=== PATIENT | female | born 1945 | race Caucasian/White ===

== ENCOUNTER → 2018-06-22 15:25 | Outpatient (CLI) | payer MEDICARE, SELFPAY ==
--- NOTE | 2018-06-22 15:29 | BI_ITS ---
MAMMOGRAPHY - BILATERAL SCREENING REASON FOR EXAM: Female, 72 years old. Routine annual screening examination. PERTINENT HISTORY: Non-contributory. TECHNIQUE: Digital bilateral breast dia (3D mammographic acquisition) in the CC and MLO projections. 2-D mediolateral oblique (MLO) and craniocaudad (CC) views of both breasts were obtained. CAD: Full Field Digital Mammography with Computer Added Detection was performed. COMPARISON: Comparison is made with prior outside examination dated June 04, 2017. FINDINGS: Breast Composition: There are scattered areas of fibroglandular density. There are no dominant masses or suspicious calcifications. No other significant abnormalities are identified. There has been no significant change since the prior study. BI/SCREENING MAMM (CAD), BILAT IMPRESSION: Stable bilateral screening mammogram. Yearly follow-up mammogram recommended. (A) ASSESSMENT CATEGORY: BIRADS Category 1: Negative. A letter regarding these results will be sent to the patient by the facility within 30 days. Approximately 10% of breast cancers are not detected by mammography. A normal mammogram should not delay biopsy of a clinically suspicious abnormality. [id number] Electronically Signed: Stanley Hudson, at 9:09 EST , Service support ,
== END ==
PROVIDERS: PCP Internal Medicine; Referring Provider Internal Medicine; Visit Provider Internal Medicine
DX: Z12.31 Encounter for screening mammogram for malignant neoplasm of breast (principal)
CPT/HCPCS: 77063; 77067

== ENCOUNTER → 2019-06-23 10:28 | Outpatient (CLI) | payer MEDICARE, SELFPAY ==
--- NOTE | 2019-06-23 10:32 | BI_ITS ---
MAMMOGRAPHY - BILATERAL SCREENING REASON FOR EXAM: Female, 73 years old. Routine annual screening examination. PERTINENT HISTORY: Non-contributory. TECHNIQUE: Digital bilateral breast lawrence (3D mammographic acquisition) in the CC and MLO projections. 2-D mediolateral oblique (MLO) and craniocaudad (CC) views of both breasts were obtained. CAD: Full Field Digital Mammography with Computer Added Detection was performed. COMPARISON: None. FINDINGS: Breast Composition: Fatty degeneration of the breasts bilaterally. There are no dominant masses or suspicious calcifications. No other significant abnormalities are identified. BI/SCREEN MAMM (CAD) W/LAWRENCE BILAT IMPRESSION: Stable bilateral screening mammogram. Yearly follow-up mammogram recommended. (A) ASSESSMENT CATEGORY: BIRADS Category 1: Negative. A letter regarding these results will be sent to the patient by the facility within 30 days. Approximately 10% of breast cancers are not detected by mammography. A normal mammogram should not delay biopsy of a clinically suspicious abnormality. [id number] Electronically Signed: Emil Garrison, at 14:55 EST Tel , Service support ,
--- NOTE | 2019-06-23 10:33 | BD_ITS ---
STUDY: DUAL ENERGY X-RAY ABSORPTIOMETRY / DXA REASON FOR EXAM: Female, 73 years old. Age of oli- 50. Pat is 125# and 64 and quot; a loss of 2 and quot; per pat. Takes 2400mg of calcium and a multi-vit. Exercises moderately. TECHNIQUE: Bone Mineral Density (BMD) measurements of lumbar spine and bilateral hips were obtained. COMPARISON: None. FINDINGS: Lumbar Spine (L1-L4): g/cm2 (0.850) / T-score (-2.8) / Z-score (-1.0) Findings are suggestive of osteoporosis with a high fracture risk. Left Femur Total: g/cm2 (0.681) / T-score (-2.6) / Z-score (-0.9) Left Femoral Neck: g/cm2 (0.710) / T-score (-2.4) / Z-score (-0.5) Right Femur Total: g/cm2 (0.699) / T-score (-2.5) / Z-score (-0.8) Right Femoral Neck: g/cm2 (0.5) / T-score (-2.1) / Z-score (-0.2) BD/Dexa Bone Density Study IMPRESSION: The patient is considered osteoporotic as outlined below according to World [employer]ac[employer] Organization (WHO) criteria with a high fracture risk. Reference Information: The T-score is the number of standard deviations above or below the standard which is normal for young adults at their peak bone mineral density. The World Health Organization (WHO) interprets the T-scores as follows: Above -1 Normal bone density Between -1 and -2.5 Osteopenia Equal to / or below -2.5 Osteoporosis As a practical clinical guideline, osteopenia may be graded as follows: Mild -1 through -1.5 Moderate -1.6 through -2.0 Severe -2.1 through -2.4 The Z-score is the number of standard deviations above or below age-matched controls. A Z-score of less than -1.5 would be considered abnormal. References: 1. NIH Osteoporosis and Related Bone Diseases http://www.osteo.org 2. International Society for Clinical Densitometry http://www.iscd.org 3. National Osteoporosis Foundation http://www.nof.org Electronically Signed: Stanley Hudson, at 15:25 EST , Service support ,
== END ==
PROVIDERS: PCP Internal Medicine; Referring Provider Internal Medicine; Visit Provider Internal Medicine
DX: Z12.31 Encounter for screening mammogram for malignant neoplasm of breast (principal); Z78.0 Asymptomatic menopausal state
CPT/HCPCS: 77063; 77067; 77080

== ENCOUNTER → 2019-07-07 | Outpatient (CLI) | payer MEDICARE, SELFPAY ==
[2019-07-07 18:12] LABS: Hematocrit 43.1 % (37-47); Hemoglobin 14.1 g/dL (12.0-15.0); Mean Corp Hgb Conc 32.7 g/dL (32-36); Mean Corpuscular Hgb 31.1 pg (27.0-32.0); Mean Corpuscular Volume 94.9 fL (81-99); Mean Platelet Vol. 10.4 fl (6.2-12.0); Platelet Count 276 K/mm3 (150-450); RBC Distribution Width CV 13.3 % (11.6-14.6); RBC Distribution Width SD 46.7 fl (35.1-43.9); Red Blood Count 4.54 M/mm3 (4.2-5.4); White Blood Count 6.1 K/mm3 (4.4-11.0)
[2019-07-07 18:21] LABS: Erythrocyte Sedimentation Rate 7 mm/hr (0-30)
[2019-07-07 18:58] LABS: AST(SGOT) 29 U/L (15-37); Alanine Aminotransfer ALT/SGPT 31 U/L (13-56); Albumin, Serum 3.7 g/dL (3.2-5.0); Alkaline Phosphatase 87 U/L (45-117); CRP < 2.90 mg/L (0.0-3.0); Creatinine, Serum 0.94 mg/dL (0.55-1.02); EST Glomerular Filtration Rate 62 mL/min (>60); Est Glom Filt Rate - Afr Amer 75 mL/min (>60); Globulin 3.6 g/dL (2.2-4.2); Phosphorus 2.8 mg/dL (2.5-4.9); Protein, Total 7.3 g/dL (6.4-8.2); Thyroid Stim Hormone (TSH) 3.01 uIU/mL (0.358-3.74)
[2019-07-08 08:15] LABS: PTHIN 59.8 pg/mL (18.4-80.1)
[2019-07-09 16:50] LABS: Vitamin D 1,25-Dihydroxy 42.6 pg/mL (19.9-79.3)
[2019-07-10 08:05] LABS: Vitamin D,25 Hydroxy 71.9 ng/mL
[2019-07-12 14:07] LABS: PROEL- A/G Ratio 1.3 (0.7-1.7); PROEL- Albumin 3.6 g/dL (2.9-4.4); PROEL- Alpha-1 Globulin 0.2 g/dL (0.0-0.4); PROEL- Alpha-2 Globulin 0.7 g/dL (0.4-1.0); PROEL- Gamma Globulin 0.9 g/dL (0.4-1.8); PROEL- Globulin, Total 2.7 g/dL (2.2-3.9); PROEL- TOTAL PROTEIN 6.3 g/dL (6.0-8.5); PROELU- Albumin, Urine 41.9 % (.); PROELU- Alpha-1-Globulin,Ur 3.9 % (.); PROELU- Alpha-2-Globulin,Ur 11.8 % (.); PROELU- Beta Globulin, Ur 23.8 % (.); PROELU- Gamma Globulin, Ur 18.5 % (.); Total Protein, Ur 8.5 mg/dL (Not Estab.)
== END | disposition home or self-care (01) ==
PROVIDERS: PCP Internal Medicine; Referring Provider Internal Medicine; Visit Provider Internal Medicine
DX: M81.0 Age-related osteoporosis without current pathological fracture (principal)
CPT/HCPCS: 36415; 80076; 82306; 82310; 82565; 82652; 83970; 84100; 84165; 84166; 84443; 85027; 85652; 86140

== ENCOUNTER → 2019-07-09 | Outpatient (CLI) | payer MEDICARE, SELFPAY ==
[2019-07-09 12:35] LABS: 24HR UR TOTAL VOLUME 1000 ml; Calcium Urine pH Range 2
== END | disposition home or self-care (01) ==
LOC: LABSPEC 08:41
PROVIDERS: PCP Internal Medicine; Referring Provider Internal Medicine; Visit Provider Internal Medicine
DX: M81.0 Age-related osteoporosis without current pathological fracture (principal)
CPT/HCPCS: 82340

== ENCOUNTER → 2020-06-26 10:59 | Outpatient (CLI) | payer MEDICARE, SELFPAY ==
--- NOTE | 2020-06-26 11:00 | BI_ITS ---
MAMMOGRAPHY - BILATERAL SCREENING REASON FOR EXAM: Female, 74 years old. Routine annual screening examination. PERTINENT HISTORY: Non-contributory. TECHNIQUE: Digital bilateral breast lawrence (3D mammographic acquisition) in the CC and MLO projections. 2-D mediolateral oblique (MLO) and craniocaudad (CC) views of both breasts were obtained. CAD: Full Field Digital Mammography with Computer Added Detection was performed. COMPARISON: Comparison is made with prior study dated 06/23/2019 and 06/22/2018. FINDINGS: Breast Composition: There are scattered areas of fibroglandular density. There are no dominant masses or suspicious calcifications. Stable bilateral benign-appearing secretory calcifications. No other significant abnormalities are identified. There has been no significant change since the prior study. BI/SCRN MAMM (CAD)W/LAWRENCE BILAT IMPRESSION: Stable bilateral screening mammogram. Yearly follow-up mammogram recommended. (A) ASSESSMENT CATEGORY: BIRADS Category 2: Benign. A letter regarding these results will be sent to the patient by the facility within 30 days. Approximately 10% of breast cancers are not detected by mammography. A normal mammogram should not delay biopsy of a clinically suspicious abnormality. [id number] Electronically Signed: Stanley Hudson MD at 11:40 EST , Service support ,
== END ==
PROVIDERS: PCP Internal Medicine; Referring Provider Internal Medicine; Visit Provider Internal Medicine
DX: Z12.31 Encounter for screening mammogram for malignant neoplasm of breast (principal)
CPT/HCPCS: 77063; 77067

== ENCOUNTER 2020-09-27 11:30 | Outpatient (RCR) | payer MEDICARE, SELFPAY ==
--- NOTE | 2020-09-07 12:03 | HP.PTEVAL ---
Patient's Visit Information KRISTIN GAN is a 75 year old F referred to Physical Therapy by Dr. Latesha Holbrook DO with a diagnosis of BACK PAIN. Date of Evaluation: 09/07/20 Physical Therapist: Chelsey Saenz PT, Cert MDT - Visit Plan Frequency: 2-3x /Week Duration: 4-6 Weeks Plan: LOW BACK ULTRASOUND. POSTURE CORRECTION/STRENGTHENING, INSTRUCTION IN APPROPRIATE BODY MECHANICS AND ACTIVITY MODIFICATIONS. DLS STARTING WITH A NEUTRAL SPINE PROGRESSING ROM TOLERATED. SUZAN LE ROM, STRETCHING AND STRENGTHENING. HEP INSTRUCTION. REVIEW PATIENTS CURRENT HP H&W EX PROGRAM AND MAKE MODIFICATIONS APPROPRIATE. - Subjective Work/Leisure: RETIRED. Present symptoms: SUZAN LOW BACK PAIN. Present since: IT HAS BEEN COMING ON FOR ABOUT A YEAR BUT SEEMED TO OVER DO IT ABOUT AUG 26 2020 STANDING AT A TRACK MEET THEN MOWED THE YARD AND IT IS BUMPY. STATES SHE MOWED ABOUT 1 HOUR FRIDAY AND 1 HOUR FRIDAY BUT IT STILL SEEMED LIKE TOO MUCH. Pain Scale: WORST 3/10, LEAST 0/10. Currently: 0/10. Commenced as a result of: SEE ABOVE. Symptoms at onset: LOW BACK PAIN. Worse: STANDING, MOWING, BENDING OVER, TRYING TO WALK TOO FAST (HAS TO GO SLOWER ON THE TREADMILL NOW THAN BEFORE ABOUT 2 WKS AGO WHEN THIS STARTED). Better: SITTING DOWN, REST, TAKING A BREAK. Disturbed sleep: NO. Previous history/Previous treatment: ABOUT 30 YEARS AGO HAD A DISC PROBLEM THAT RESOLVED WITH TRACTION. NO BACK SURGERY. NO SONIYA'S. NO CHIROPRACTIC. NO PHYSICAL THERAPY. Treatment this episode: PREDNISONE - HELPED. ALSO RECEIVED A SHOT FOR PAIN IN DR. HOLBROOK'S OFFICE. Coughing/sneezing/straining: NEGATIVE. Gait: USE TO GO 4.2 OR 4.3 MPH BUT NOW IT HURTS TO GO THAT FAST BUT HAS WORKED BACK UP TO ABOUT 3.8 MPH AT LEAST PART OF THE TIME. Difficulty initiating urination: NO. Accidents: NO. Unexplained weight loss: NO. Imaging: NONE RECENT. PMH: SCALP SCAB FROM CHEMO CREAM FOR SKIN CANCER. Recent major surgery: NO - Objective Sitting/Standing Posture: FAIR. RIGHT ILIAC CREST HIGHER THAN LEFT. LEFT SHLD LEVEL HIGHER THAN RIGHT. POSSIBLE SCOLIOSIS BUT NO RIB HUMP WITH FORWARD FLEXION. Lordosis: REDUCED. Lateral shift: LEFT. Relevant shift: N/A - PATIENT CAN CROSS MID-LINE TO THE RIGHT. Active Correction of posture: WORSE. Other Observations: INDEP TRANSFER SIT TO STAND WITHOUT UE ASSIST. INDEP GAIT WITHOUT LOB OR ASSISTIVE DEVICE ON LEVEL SURFACES BUT DECREASED CADANCE. Motor deficit: SUZAN LE'S 5/5 WITH MMT'ING EXCEPT HIPS 4/5. Sensory deficit: SUZAN LE LIGHT TOUCH SENSATION INTACT AND SYMMETRICAL. ROM deficit: MILD SUZAN HS TIGHTNESS. Reflexes: UNABLE TO ELICIT SUZAN LE DTR'S. Dural Signs: NEGATIVE SUZAN LE'S. Lumbar mvmt loss: flex - NIL. ext - SANTANA. R SG - MOD. L SG - MIN. PATIENT DENIES INCREASED LOW BACK PAIN WITH LUMBAR ROM TESTING ALL PLANES EXCEPT R SG. Core strength: POOR. Palpation: NO ACUTE LUMBAR TENDERNESS WITH PALPATION. OTHER: PATIENT IS ABLE TO SINGLE LEG STANCE ON EA LEG X > 10 SEC'S WITHOUT UE ASSIST. TREATMENT: NEUROMUSCULAR REEDUCATION - RETRAINING OF MVMT AND POSTURE FOR SITTING, LYING AND STANDING ACTIVITIES. - Goals Goal 1:: DECREASE C/O LOW BACK PAIN Goal Time Frame: 4-6 Weeks Goal 2:: IMPROVE STANDING, WALKING, YARDWORK, HOUSEWORK AND RECREATIONAL FUNCTION. Goal Time Frame: 4-6 Weeks Goal 3:: INSTRUCT IN PROPHYLAXIS Goal Time Frame: 4-6 Weeks - Anticipated Interventions Patient/Client Instruction: Educate patient on: Condition, Plan of Care, Risk Factors For the Purpose of:: To improve self management Therapeutic Exercise to Include: Strength training, Body mechanics, Postural training, Neuromotor development, Dynamic Lumbar Stabilization For the Purpose of:: To decrease pain, To improve muscle performance and motor function, To increase tolerance to activity/condition/position, To improve ability of physical actions for home/community/work/leisure Thank you for the opportunity to evaluate your patient. For Medicare and Medicare HMO plans, please review the plan of care and approve it. It will need to be FAXED BACK to us at [phone] for Medicare purposes. For Medicare only, by signing this I certify the plan of care. Please let me know if there are questions or concerns regarding this plan of care. Physician Signature: Date:
--- NOTE | 2020-09-27 12:11 | HP.PTDCSUM ---
It has been my pleasure to treat KRISTIN GAN referred by Dr. Latesha Mcgrath DO, with the diagnosis of BACK PAIN for a total of 10 visit(s). Discharge Date: Please see the following information for a summary of their discharge status. Subjective: PATIENT REPORTS SHE IS DONG MUCH BETTER AND DOESN'T REALLY HAVE MUCH PAIN AT ALL ANYMORE. R LB Pain Intensity (Out of 10): 0 L LB Pain Intensity (Out of 10): 0 % Improvement: 99 Objective/Function: ALL GOALS MET. PATIENT IS APPROPRIATE FOR DISCHARGE TO INDEP EX AT THIS TIME AND SHE IS AGREEABLE. SHE REPORTS THAT NOT ONLY IS THE PAIN THAT SHE CAME HERE FOR GONE BUT EVEN PAIN SHE WAS HAVING BEFORE THAT SHE RELATED TO HER OSTEOPOROSIS. THERE IS NO SIGNIFICANT CHANGE WITH STRENGTH AND ROM TESTING TODAY EXCEPT TESTING IS PAINFREE NOW. PATIENT IS NOW INDEP WITH HOME AND GYM INSTRUCTIONS. Goal 1:: DECREASE C/O LOW BACK PAIN Goal Progress: Goal Met Goal 2:: IMPROVE STANDING, WALKING, YARDWORK, HOUSEWORK AND RECREATIONAL FUNCTION. Goal Progress: Goal Met Goal 3:: INSTRUCT IN PROPHYLAXIS Goal Progress: Goal Met Plan: D/C TO INDEP EX. PATIENT AGREEABLE. If there are questions or concerns regarding this patient's physical therapy, please feel free to call me at [phone]. Thank you for the referral of this patient. Sincerely, Chelsey Saenz, PT, Cert MDT
== END 2020-09-27 19:00 | disposition home or self-care (01) ==
LOC: PT 11:30
PROVIDERS: PCP Internal Medicine; Referring Provider Internal Medicine; Visit Provider Internal Medicine
DX: M54.5 Low back pain (principal)
CPT/HCPCS: 97035; 97110; 97112; 97162; 97164; 97530

== ENCOUNTER 2021-07-11 09:55 | Outpatient (CLI) | payer MEDICARE, SELFPAY ==
--- NOTE | 2021-07-11 10:38 | BI_ITS ---
MAMMOGRAPHY - BILATERAL SCREENING 3-D TOMOSYNTHESIS REASON FOR EXAM: Female, 75 years old. SCREENING PERTINENT HISTORY: No significant family history. TECHNIQUE: 2-D mammograms and 3-D Tomosynthesis of the breast (s) were performed. CAD was performed. COMPARISON: 06/26/2020 FINDINGS: The breast composition is composed of scattered fibroglandular density. Scattered benign calcifications are seen. No dense spiculated masses or suspicious microcalcifications are identified. No architectural distortion is identified. There is no skin thickening or retraction. There has been no significant change since the prior study. BI/SCRN MAMM (CAD)W/LAWRENCE BILAT IMPRESSION: No mammographic signs of malignancy. Routine yearly mammograms recommended. ASSESSMENT CATEGORY: BIRADS Category 1: Negative. A letter regarding these results will be sent to the patient by the facility within 30 days. FOLLOW UP RECOMMENDATION: Yearly follow up mammogram recommended. (A) Approximately 10% of breast cancers are not detected by mammography. A normal mammogram should not delay biopsy of a clinically suspicious abnormality. Electronically Signed: Je Larry MD at 12:25 EDT ,
--- NOTE | 2021-07-11 10:42 | BD_ITS ---
STUDY: DUAL ENERGY X-RAY ABSORPTIOMETRY / DXA REASON FOR EXAM: Female, 75 years old. 627.8Menopausal postmenopausalBONE DENSITY REASON FOR EXAM TECHNIQUE: Bone Mineral Density (BMD) measurements of lumbar spine and bilateral hips were obtained. COMPARISON: Comparison is made with prior study dated 06/23/2019. FINDINGS: Lumbar Spine (L1-L4): g/cm2 (0.771) / T-score (-2.5) / Z-score (-0.1) Findings are suggestive of osteopenia with a high fracture risk. Left Femur Total: g/cm2 (0.647) / T-score (-2.4) / Z-score (-0.6) Left Femoral Neck: g/cm2 (0.603) / T-score (-2.2) / Z-score (-0.1) Right Femur Total: g/cm2 (0.679) / T-score (-2.2) / Z-score (-0.3) Right Femoral Neck: g/cm2 (0.622) / T-score (-2.0) / Z-score (0.1) The T-Scores on the most recent prior examination were: Lumbar Spine (L1-L4): There has been improvement of bone density since the previous examination. Left Femur Total: which represents an improvement of 3.6%. Right Femur Total: which represents an improvement of 5.9%. BD/Dexa Bone Density Study IMPRESSION: The patient is considered osteopenic as outlined below according to World Plac[employer] Organization (WHO) criteria with a high fracture risk. There has been improvement of bone density since the previous examination. Reference Information: The T-score is the number of standard deviations above or below the standard which is normal for young adults at their peak bone mineral density. The World Health Organization (WHO) interprets the T-scores as follows: Above -1 Normal bone density Between -1 and -2.5 Osteopenia Equal to / or below -2.5 Osteoporosis As a practical clinical guideline, osteopenia may be graded as follows: Mild -1 through -1.5 Moderate -1.6 through -2.0 Severe -2.1 through -2.4 The Z-score is the number of standard deviations above or below age-matched controls. A Z-score of less than -1.5 would be considered abnormal. References: 1. NIH Osteoporosis and Related Bone Diseases www osteo.org 2. International Society for Clinical Densitometry www iscd.org 3. National Osteoporosis Foundation www nof.org Electronically Signed: Stanley Hudson MD at 15:26 EDT ,
== END 2021-07-11 23:59 | disposition home or self-care (01) ==
LOC: OPBD 10:36
PROVIDERS: PCP Internal Medicine; Referring Provider Internal Medicine; Visit Provider Internal Medicine
DX: Z12.31 Encounter for screening mammogram for malignant neoplasm of breast (principal); Z78.0 Asymptomatic menopausal state
CPT/HCPCS: 77063; 77067; 77080

== ENCOUNTER → 2022-07-12 | Outpatient (CLI) | payer MEDICARE, SELFPAY ==
--- NOTE | 2022-07-12 13:26 | BI_ITS ---
MAMMOGRAPHY - BILATERAL SCREENING 3-D TOMOSYNTHESIS REASON FOR EXAM: Female, 76 years old. Routine screening PERTINENT HISTORY: No significant family history. TECHNIQUE: 2-D mammograms and 3-D Tomosynthesis of the breast (s) were performed. CAD was performed. COMPARISON: None. FINDINGS: The breast composition is composed of scattered fibroglandular density. Scattered benign calcifications are seen. No dense spiculated masses or suspicious microcalcifications are identified. No architectural distortion is identified. There is no skin thickening or retraction. There has been no significant change since the prior study. BI/SCRN MAMM (CAD)W/LAWRENCE BILAT IMPRESSION: No mammographic signs of malignancy. Routine yearly mammograms recommended. ASSESSMENT CATEGORY: BIRADS Category 1: Negative. A letter regarding these results will be sent to the patient by the facility within 30 days. FOLLOW UP RECOMMENDATION: Yearly follow up mammogram recommended. (A) Approximately 10% of breast cancers are not detected by mammography. A normal mammogram should not delay biopsy of a clinically suspicious abnormality. Electronically Signed: Duran Fischer MD at 14:14 EDT ,
== END | disposition home or self-care (01) ==
LOC: OPBI 13:25
PROVIDERS: PCP Internal Medicine; Referring Provider Internal Medicine; Visit Provider Internal Medicine
DX: Z12.31 Encounter for screening mammogram for malignant neoplasm of breast (principal)
CPT/HCPCS: 77063; 77067

== ENCOUNTER → 2023-07-29 | Outpatient (CLI) | payer MEDICARE, SELFPAY ==
--- NOTE | 2023-07-29 13:13 | BI_ITS ---
MAMMOGRAPHY - BILATERAL SCREENING REASON FOR EXAM: Female, 77 years old. Routine annual screening examination. PERTINENT HISTORY: Non-contributory. TECHNIQUE: Digital bilateral breast lawrence (3D mammographic acquisition) in the CC and MLO projections. 2-D mediolateral oblique (MLO) and craniocaudad (CC) views of both breasts were obtained. CAD: Full Field Digital Mammography with Computer Added Detection was performed. COMPARISON: Comparison is made with prior study July 12, 2022 and July 11, 2021. FINDINGS: Breast Composition: There are scattered areas of fibroglandular density. There are no dominant masses or suspicious calcifications. Stable bilateral secretory calcifications. No other significant abnormalities are identified. There has been no significant change since the prior study. BI/SCRN MAMM (CAD)W/LAWRENCE BILAT IMPRESSION: Stable bilateral screening mammogram. Yearly follow-up mammogram recommended. (A) ASSESSMENT CATEGORY: BIRADS Category 2: Benign. A letter regarding these results will be sent to the patient by the facility within 30 days. Approximately 10% of breast cancers are not detected by mammography. A normal mammogram should not delay biopsy of a clinically suspicious abnormality. [id number] Electronically Signed: Stanley Hudson MD at 14:00 EDT ,
--- NOTE | 2023-07-29 13:44 | BD_ITS ---
STUDY: DUAL ENERGY X-RAY ABSORPTIOMETRY / DXA REASON FOR EXAM: Female, 77 years old. Z78.0 TECHNIQUE: Bone Mineral Density (BMD) measurements of lumbar spine and bilateral hips were obtained. COMPARISON: Comparison is made with prior study July 11, 2021. FINDINGS: Lumbar Spine (L1-L4): g/cm2 (0.810) / T-score (-2.2) / Z-score (0.4) Findings are suggestive of osteopenia with a high fracture risk. Left Femur Total: g/cm2 (0.640) / T-score (-2.5) / Z-score (-0.5) Left Femoral Neck: g/cm2 (0.598) / T-score (-2.3) / Z-score (0.0) Right Femur Total: g/cm2 (0.673) / T-score (-2.2) / Z-score (-0.3) Right Femoral Neck: g/cm2 (0.614) / T-score (-2.1) / Z-score (0.1) The T-Scores on the most recent prior examination were: Lumbar Spine (L1-L4): There has been improvement of bone density since the previous examination. Left Femur Total: which represents a worsening of 1%. Right Femur Total: which represents a worsening of 0.9%. BD/Dexa Bone Density Study IMPRESSION: The patient is considered osteopenic as outlined below according to World [employer]ac[employer] Organization (WHO) criteria with a high fracture risk. There has been worsening of bone density since the previous examination. Reference Information: The T-score is the number of standard deviations above or below the standard which is normal for young adults at their peak bone mineral density. The World Health Organization (WHO) interprets the T-scores as follows: Above -1 Normal bone density Between -1 and -2.5 Osteopenia Equal to / or below -2.5 Osteoporosis As a practical clinical guideline, osteopenia may be graded as follows: Mild -1 through -1.5 Moderate -1.6 through -2.0 Severe -2.1 through -2.4 The Z-score is the number of standard deviations above or below age-matched controls. A Z-score of less than -1.5 would be considered abnormal. References: 1. NIH Osteoporosis and Related Bone Diseases www osteo.org 2. International Society for Clinical Densitometry www iscd.org 3. National Osteoporosis Foundation www nof.org Electronically Signed: Stanley Hudson MD at 14:16 EDT ,
== END | disposition home or self-care (01) ==
LOC: OPBD 13:13
PROVIDERS: PCP Internal Medicine; Referring Provider Internal Medicine; Visit Provider Internal Medicine
DX: Z00.00 Encounter for general adult medical examination without abnormal findings (principal); Z12.31 Encounter for screening mammogram for malignant neoplasm of breast; Z78.0 Asymptomatic menopausal state; M81.0 Age-related osteoporosis without current pathological fracture
CPT/HCPCS: 77063; 77067; 77080

== ENCOUNTER 2024-04-27 07:30 | Outpatient (RCR) | payer MEDICARE, SELFPAY ==
--- NOTE | 2024-04-07 09:33 | HP.PTEVAL ---
Patient's Visit Information Visit Information Visit Information: KRISTIN GAN is a 78 year old F referred to Physical Therapy by [facility] with a diagnosis of LEFT SIDED LEVATOR SCAPULAR SYNDOME. Date of Evaluation: 04/07/24 Physical Therapist: Manuel De Leon, PT, Cert MDT, OCS Visit Plan Frequency: 2x /Week Duration: 4 Weeks Plan: PT INTERVENTIONS POSTURAL EX'S , SCAPULAR STRENGTHENING , MANUAL THERAPY STM ,ACTIVITY MODIFICATION ,AND MODALTIES Subjective Subjective: This 78 y/o female presents to physical therapy with left shoulder pain and scapular. Patient has had symptoms for ~ 1 1/2 with insidious onset progressively. Seen PA recommended PT. Did pain injection and stretches. Aggravating factors rest and supine mainly at night. Location of pain located left scapular. During day symptoms 1-2 /10Symptoms described as soreness. Alleviating factors teylonal. Denies dizziness/nausea/BECERRIL. Denies paresthesia/tingling. Patient pain affects sleeping. Patient is active working out at with machines. Patient symptoms affects QOL and function and sleeping. Patient goals less pain and mainly sleep. Patient has osteoporosis takes prolia SOCIAL: VOCATION: homemaker Pain Left Scapula: Pain Intensity (Out of 10): 8 Pain Intensity Range: 10 Comment: night Objective Objective: POSTURE: mild forward posture PALAPTION: tender scapular region NEURO: denies paresthesia/tingling ,reflexes C5-6-7 1/3 AROM: BUE WFL MMT: grossly 4/5 no pain CERVICAL ROM: flexion min ,lateral flexion mod loss ,rotation mod loss ,extension min loss THORACIC ROM: flexion min ,extension mod loss ,rotation mod loss Special Tests C/S Radiculapathy - Left Upper limb tension test: Negative C/S Radiculapathy - Right Upper limb tension test: Negative C/S Radiculapathy - Left Spurlings: Negative C/S Radiculapathy - Right Spurlings: Negative C/S Radiculapathy - Left Cervical distraction: Negative C/S Radiculapathy - Right Cervical distraction: Negative C/S Radiculapathy - Left Relief test: Negative C/S Radiculapathy - Right Relief test: Negative C/S Radiculapathy - Valsalva: Negative Sharp Dai: Negative Vertebral Artery Test: Negative Alar Ligament Test: Negative Balance/Special Test Scores Quick DASH Score: 38.6350 Goals Goal 1:: Patient to be I with HEP for scapular Goal Time Frame: 4-6 Weeks Goal 2:: Patient to improve 50% improve function and ADLS Goal Time Frame: 4-6 Weeks Goal 3:: Patient to improve quick dash by 5 points to improve QOL Goal Time Frame: 4-6 Weeks Goal 4:: Patient is able to sleep throughout night without pain Goal Time Frame: 4-6 Weeks Rehabilitation Potential Physical Therapy Diagnosis: Patient has left scapular soreness and tender with palpation cervical ROM NW /NB or mo weakness ,patient has pain at rest laying down at night thus benefit From skilled PT Rehabilitation Potential: Good Anticipated Interventions Patient/Client Instruction: Educate patient on: Condition and Plan of Care For the Purpose of:: To decrease pain, To increase ROM, To improve muscle performance and motor function, To improve ability to perform ADL's, To increase tolerance to activity/condition/position, To improve ability of physical actions for home/community/work/leisure, To improve health of tissue, To decrease soft tissue restriction, To increase flexibility/ROM and To improve tolerance to ADL's Therapeutic Exercise to Include: Strength training, Postural training, Flexibilty training and Scapular Strength/Stabilization For the Purpose of:: To decrease pain, To increase ROM, To improve muscle performance and motor function, To improve ability to perform ADL's, To increase tolerance to activity/condition/position, To improve ability of physical actions for home/community/work/leisure, To improve health of tissue, To decrease soft tissue restriction, To increase flexibility/ROM and To improve tolerance to ADL's Manual Therapy Techniques to Include: Soft tissue mobilization For the Purpose of:: To decrease pain, To increase ROM, To improve health of tissue and To decrease soft tissue restriction TENS: Yes IF ES: Yes Cryotherapy (ice pack, ice massage): Yes Thermo therapy (hot pack): Yes Ultrasound (thermal/non thermal): Yes For the Purpose of:: To decrease pain, To increase ROM, To improve nutrient delivery to tissue, To increase oxygenation perfusion, To improve health of tissue and To decrease soft tissue restriction Text: Thank you for the opportunity to evaluate your patient. For Medicare and Medicare HMO plans, please review the plan of care and approve it. It will need to be FAXED BACK to us at [phone] for Medicare purposes. For Medicare only, by signing this I certify the plan of care. Please let me know if there are questions or concerns regarding this plan of care. Physician Signature: Date:
--- NOTE | 2024-04-27 14:36 | HP.PTDCSUM ---
Discharge Summary D/C summary: It has been my pleasure to treat KRISTIN HOLDEN referred by Aleyda Holden, [facility], with the diagnosis of LEFT SIDED LEVATOR SCAPULAR SYNDOME for a total of 7 visit(s). Discharge Date: Please see the following information for a summary of their discharge status. Subjective Subjective: Pt states she is having no more sxs - doesn't feel that spot when she is sleeping. Pain Left Scapula: Pain Intensity (Out of 10): 0 Overall Improvement % Improvement: 99 Objective Objective/Function: Went over pt's gym program again today. No questions, pretty indep at this point. States she wants to make today her last session. Advised to increase reps on all her exercises before intensity - did this today where able. Quick DASH filled out at [facility]. Goals Goal 1:: Patient to be I with HEP for scapular Goal 2:: Patient to improve 50% improve function and ADLS Goal 3:: Patient to improve quick dash by 5 points to improve QOL Goal 4:: Patient is able to sleep throughout night without pain Plan Plan: D/C MET GOALS D/C Information d/c sentence: If there are questions or concerns regarding this patient's physical therapy, please feel free to call me at [phone]. Thank you for the referral of this patient. Sincerely, Manuel De Leon, PT, Cert MDT, OCS Balance/Gait/Functional tests Balance/Special Test Scores Quick DASH Score: 9.0900 Improvement % Improvement: 99
== END 2024-04-27 15:04 | disposition home or self-care (01) ==
LOC: PT 07:30
PROVIDERS: PCP Internal Medicine; Referring Provider Nurse Practitioner Family; Visit Provider Nurse Practitioner Family
DX: M79.18 Myalgia, other site (principal)
CPT/HCPCS: 97110; 97140; 97162

== ENCOUNTER → 2024-07-29 | Outpatient (CLI) | payer MEDICARE, SELFPAY ==
--- NOTE | 2024-07-29 10:23 | BI_ITS ---
EXAM: SCRN MAMM (CAD)W/LAWRENCE BILAT DATE: 07/29/2024 CLINICAL HISTORY: F, Age 78 y/o , SCREENING No family history. BREAST CANCER RISK ASSESSMENT: Not assessed. TECHNIQUE: Bilateral screening digital breast tomosynthesis with 2D and 3D images. Computer aided detection. COMPARISON: Prior exam(s) dated July 29, 2023.. FINDINGS: TISSUE DENSITY: The breast tissue is composed of scattered area of fibroglandular density. Bilateral Breast Mammographic Findings: No significant masses, calcifications or other abnormalities are identified. Stable bilateral secretory calcifications. BI/SCRN MAMM (CAD)W/LAWRENCE BILAT IMPRESSION: Right Breast: BIRADS 2 BENIGN FINDING. Left Breast: BIRADS 2 BENIGN FINDING. OVERALL FINAL ASSESSMENT: BIRADS 2 BENIGN FINDING RECOMMENDATION: Routine annual follow-up in 1 Year A letter with findings and recommendations will be mailed to the patient. Reading Location: [place] [id number]
== END | disposition home or self-care (01) ==
LOC: OPBI 10:22
PROVIDERS: PCP Internal Medicine; Referring Provider Internal Medicine; Visit Provider Internal Medicine
DX: Z12.31 Encounter for screening mammogram for malignant neoplasm of breast (principal)
CPT/HCPCS: 77063; 77067

== ENCOUNTER → 2025-03-21 | Outpatient (CLI) | payer MEDICARE, SELFPAY ==
[2025-03-21 13:35] LABS: Mucous, Urine 0 SEEN /hpf (<or=2+); Red Blood Cells-Urine 0 SEEN /hpf (0-5)
[2025-03-21 15:07] LABS: Color, Urine Yellow (Yellow); Glucose, Dipstick Normal (Normal); Ketone-Dipstick 5 mg/dl (Negative); Leukocyte Esterase-Dipstick Negative /ul (Negative); Nitrite-Dipstick Negative (Negative); Occult Blood-Urine Negative /ul (Negative); Protein-Dipstick 100 mg/dl (Negative); Specific Gravity, Urine 1.030 (1.002-1.030); Urine Bilirubin Dipstick Negative (Negative)
[2025-03-21 15:08] LABS: Hematocrit 45.2 % (37-47); Hemoglobin 15.2 g/dL (12.0-15.0); Mean Corp Hgb Conc 33.6 g/dL (32-36); Mean Corpuscular Volume 95.6 fL (81-99); Mean Platelet Vol. 9.9 fl (6.2-12.0); Platelet Count 304 K/mm3 (150-450); RBC Distribution Width CV 13.7 % (11.6-14.6); RBC Distribution Width SD 48.9 fl (35.1-43.9); Red Blood Count 4.73 M/mm3 (4.2-5.4); White Blood Count 6.5 K/mm3 (4.4-11.0)
[2025-03-21 15:18] LABS: Calcium Oxalate Crystals Ur 2+ /hpf (<or=2+); Squamous Epithelial Cells - UA 0-5 SEEN /hpf (5-10)
[2025-03-21 18:12] LABS: AST(SGOT) 28 U/L (<=31); Alanine Aminotransfer ALT/SGPT 27 U/L (<=34); Albumin, Serum 4.4 g/dL (3.4-4.8); Alkaline Phosphatase 64 U/L (35-104); Anion Gap 11 (5-15); BUN 25 mg/dL (4-19); BUN/Creat Ratio 22.5 RATIO (10-20); Calcium,Total 10.9 mg/dL (7.6-11.0); Carbon Dioxide 28.9 mmol/L (21.0-32.0); Chloride 104 mmol/L (98-108); Cholesterol 249 mg/dL (<=200); Globulin 2.5 g/dL (2.2-4.2); Glucose 89 mg/dL (70-99); Low Density Lipoprotein Calc. 133 mg/dL; Potassium 4.5 mmol/L (3.3-5.1); Triglycerides 150 mg/dL; Very Low Density Lipoprotein 30 mg/dL (5-40); cholesterol:hdl ratio screen 2.75
[2025-03-24 11:08] LABS: Vitamin D 1,25-Dihydroxy 44.8 pg/mL (24.8-81.5)
== END | disposition home or self-care (01) ==
LOC: CIMLAB 13:34
PROVIDERS: PCP Internal Medicine; Referring Provider Internal Medicine; Visit Provider Internal Medicine
DX: N18.30 Chronic kidney disease, stage 3 unspecified (principal); E78.5 Hyperlipidemia, unspecified; E03.9 Hypothyroidism, unspecified; E55.9 Vitamin D deficiency, unspecified
CPT/HCPCS: 36415; 80053; 80061; 81001; 82652; 84443; 85027